=== PATIENT | female | born 1945 | race Caucasian/White ===

== ENCOUNTER 2017-04-28 17:27 | Emergency (ER) | payer OTHER ==
[~2017-04-28] VITALS: Ht 152.4 cm; Wt 68.0 kg
[~2017-04-28 17:27] MED LIST: AMITRIPTYLINE25 M1 PO; AMOX/CLAV POT1 TAB PO; APAP/HYDROCODON1 T13 PO; BENAZEPRIL10 MG PO; CIPRO250 MG PO; COLACE100 MG PO; DIA5 PO; ELA25 PO; ELAVIL25 MG PO; FERROUS SULFAT325 M2 PO; GABAPENTIN100 M2 PO; GLIPIZIDE5 MG PO; GLUCOTROL5 MG PO; LAC PO; LOTENSIN10 MG PO; MACROBID100 MG PO; METFORMIN HCL500 MG PO; METFORMIN500 MG PO; NAPROSYN PO; NOR10T PO; PRILOSEC OTC20 M1 PO; PRILOSEC20 MG PO; RANITIDINE150 MG PO; RES15 PO; RESTORIL15 MG PO; SIMVASTATIN40 M1 PO; TEMAZEPAM30 MG PO; ZOCOR PO; ZOCOR40 MG PO; ZOLPIDEM5 M1 PO
[2017-04-28 18:53] VITALS: BP 124/61; Ht 152.4 cm; Wt 68.0 kg
== END 2017-04-28 19:47 | disposition left against medical advice (07) ==
LOC: ED 17:27
DX: Z53.21 Procedure and treatment not carried out due to patient leaving prior to being seen by health care provider (principal)

== ENCOUNTER 2017-06-21 17:52 | Inpatient (IN) | payer OTHER ==
[~2017-06-21] VITALS: Ht 152.4 cm; Wt 64.4 kg
[~2017-06-21 17:52] MED LIST changes: -GLIPIZIDE5 MG PO; +LOTENSIN40 MG PO
[2017-06-21 19:31] LABS: BASOPHIL % 0.6 % (0-2); PLATELET COUNT 240 x10^3mcL (130-400)
[2017-06-21 19:33] LABS: RED CELL DISTRIBUTION WIDTH 15.3 % (11.5-14.5)
[2017-06-21 19:44] LABS: CALCIUM 9.2 mg/dL (8.5-10.1); CARBON DIOXIDE 27.7 mmol/L (21-32); CHLORIDE SERUM 101 mmol/L (98-107); CREATININE SERUM 0.9 mg/dL (0.6-1.0); GLUCOSE SERUM 138 mg/dL (74-106); POTASSIUM SERUM 3.9 mmol/L (3.5-5.1); SODIUM SERUM 141 mmol/L (136-145)
[2017-06-21] MEDS ORDERED: BACLOFEN10 MG PO (19:52)
[2017-06-21] MEDS ORDERED: NEURONTIN100 MG PO (19:52)
[2017-06-21] MEDS ORDERED: ARTIFICIAL TEA1 EACH (19:53)
[2017-06-21 19:56] LABS: ALBUMIN 3.8 g/dL (3.4-5.0); ALKALINE PHOSPHATASE 51 U/L (46-116); ALT/SGPT 27 U/L (14-59); AMYLASE 40 U/L (25-115); AST/SGOT 27 U/L (15-37); BILIRUBIN TOTAL 0.3 mg/dL (0.20-1.00); HDL CHOLESTEROL 41 mg/dL (40-60); LIPASE 140 IU/L (73-393); T4(THYROXINE) 8.1 ug/dL (4.7-13.3); TOTAL PROTEIN, SERUM 7.8 g/dL (6.4-8.2)
[2017-06-21 19:57] LABS: CHOLESTEROL 111 mg/dL (<200)
[2017-06-21 20:23] LABS: UA SPECIFIC GRAVITY <=1.005 (1.005-1.035); microscopic required? YES; urine erythrocyte NEGATIVE (NEGATIVE)
[2017-06-21 20:38] LABS: AMPHETAMINE QUAL UR NONE DETECTED (NEG <=1000)
[2017-06-21 20:57] LABS: CHOLESTEROL/HDL RATIO 2.7; MAGNESIUM 1.6 mg/dL (1.8-2.4); PHOSPHOROUS 3.5 mg/dL (2.5-4.9)
[2017-06-21 21:01] LABS: T3 TOTAL 1.04 ng/mL
[2017-06-21 21:14] LABS: FREE T4 1.24 ng/dL (0.76-1.46); FREE THYROXINE INDEX 3.6 ug/dL (1.4-4.5); T4(THYROXINE) 9.6 ug/dL (4.7-13.3)
[2017-06-21 21:35] VITALS: BP 141/68
[2017-06-21 21:37] VITALS: Ht 152.4 cm; Wt 64.4 kg
[2017-06-21 22:01] VITALS: BP 141/68
[2017-06-22 07:15] LABS: BASOPHIL % 0.6 % (0-2); PLATELET COUNT 215 x10^3mcL (130-400)
[2017-06-22 07:20] LABS: RED CELL DISTRIBUTION WIDTH 15.3 % (11.5-14.5)
[2017-06-22 07:28] LABS: CALCIUM 8.6 mg/dL (8.5-10.1); CARBON DIOXIDE 25.9 mmol/L (21-32); CHLORIDE SERUM 108 mmol/L (98-107); CREATININE SERUM 0.8 mg/dL (0.6-1.0); GLUCOSE SERUM 114 mg/dL (74-106); SODIUM SERUM 144 mmol/L (136-145)
[2017-06-22 09:47] VITALS: BP 125/60
[2017-06-22 13:42] VITALS: BP 117/62
[2017-06-22 16:54] VITALS: BP 121/61
[2017-06-22 20:18] VITALS: BP 113/51
[2017-06-23 05:48] VITALS: BP 112/51
[2017-06-23 07:59] LABS: BASOPHIL % 0.5 % (0-2); PLATELET COUNT 197 x10^3mcL (130-400)
[2017-06-23 08:21] LABS: RED CELL DISTRIBUTION WIDTH 15.7 % (11.5-14.5)
[2017-06-23 08:38] LABS: CALCIUM 8.5 mg/dL (8.5-10.1); CARBON DIOXIDE 22.7 mmol/L (21-32); CHLORIDE SERUM 110 mmol/L (98-107); CREATININE SERUM 0.7 mg/dL (0.6-1.0); GLUCOSE SERUM 109 mg/dL (74-106); MAGNESIUM 2.1 mg/dL (1.8-2.4); PHOSPHOROUS 3.2 mg/dL (2.5-4.9); POTASSIUM SERUM 4.3 mmol/L (3.5-5.1); SODIUM SERUM 143 mmol/L (136-145)
[2017-06-23 10:32] VITALS: BP 118/56
[2017-06-23 12:38] LABS: RED BLOOD CELLS 3.73 M/mm3 (4.10-5.10)
[2017-06-23 13:18] VITALS: BP 106/44
[2017-06-23 13:47] VITALS: BP 116/50
[2017-06-23 16:51] LABS: IRON 49 ug/dL (50-170); TOTAL IRON BINDING CAPACITY 314 ug/dL (250-450)
[2017-06-23 17:43] VITALS: BP 135/60
[2017-06-23 21:37] VITALS: BP 118/47
[2017-06-24 06:35] VITALS: BP 133/62
[2017-06-24 07:15] LABS: BASOPHIL % 0.6 % (0-2); PLATELET COUNT 183 x10^3mcL (130-400)
[2017-06-24 07:24] LABS: RED CELL DISTRIBUTION WIDTH 15.2 % (11.5-14.5)
[2017-06-24 07:41] LABS: CALCIUM 8.3 mg/dL (8.5-10.1); CARBON DIOXIDE 23.1 mmol/L (21-32); CHLORIDE SERUM 109 mmol/L (98-107); CREATININE SERUM 0.7 mg/dL (0.6-1.0); GLUCOSE SERUM 106 mg/dL (74-106); MAGNESIUM 1.6 mg/dL (1.8-2.4); PHOSPHOROUS 3.3 mg/dL (2.5-4.9); POTASSIUM SERUM 3.9 mmol/L (3.5-5.1); SODIUM SERUM 142 mmol/L (136-145)
[2017-06-24 08:13] VITALS: BP 134/62
[2017-06-24 13:07] VITALS: BP 131/86
[2017-06-24] MEDS ORDERED: PRILOSEC OTC20 M1 PO (14:28)
[2017-06-24] MEDS ORDERED: FLO4 PO (14:29)
[2017-06-24] MEDS ORDERED: MAC100 PO (14:31)
[2017-06-24] MEDS ORDERED: IMODIUM A-D2 M3 PO (14:31)
[2017-06-24] MEDS ORDERED: LAC PO (14:31)
[2017-06-24 14:49] VITALS: BP 131/86
== END 2017-06-24 16:00 | disposition home or self-care (01) | DRG 690 ==
LOC: ED 17:52 → DU 19:33
PROVIDERS: Emergency Medicine; Family Medicine; Internal Medicine
PROC: 0DBL8ZX Excision of Transverse Colon, Via Natural or Artificial Opening Endoscopic, Diagnostic (ICD-10-PCS; 2017-06-23)
PROC: 0DB68ZX Excision of Stomach, Via Natural or Artificial Opening Endoscopic, Diagnostic (ICD-10-PCS; principal; 2017-06-23 12:30)
PROC: 0DBP8ZX Excision of Rectum, Via Natural or Artificial Opening Endoscopic, Diagnostic (ICD-10-PCS; 2017-06-23 12:30)
DX: N39.0 Urinary tract infection, site not specified (principal); K58.0 Irritable bowel syndrome with diarrhea; I95.1 Orthostatic hypotension; G90.8 Other disorders of autonomic nervous system; K29.70 Gastritis, unspecified, without bleeding; I10 Essential (primary) hypertension; E78.00 Pure hypercholesterolemia, unspecified; Z85.038 Personal history of other malignant neoplasm of large intestine; Z92.21 Personal history of antineoplastic chemotherapy; E78.5 Hyperlipidemia, unspecified; Z87.11 Personal history of peptic ulcer disease; Z90.49 Acquired absence of other specified parts of digestive tract; Z98.891 History of uterine scar from previous surgery; Z83.3 Family history of diabetes mellitus; Z88.6 Allergy status to analgesic agent; Z80.9 Family history of malignant neoplasm, unspecified; Z60.2 Problems related to living alone; N20.0 Calculus of kidney; N28.1 Cyst of kidney, acquired; E11.65 Type 2 diabetes mellitus with hyperglycemia; K21.9 Gastro-esophageal reflux disease without esophagitis; E83.42 Hypomagnesemia; E87.8 Other disorders of electrolyte and fluid balance, not elsewhere classified; E11.9 Type 2 diabetes mellitus without complications; E27.8 Other specified disorders of adrenal gland; K80.20 Calculus of gallbladder without cholecystitis without obstruction; I35.0 Nonrheumatic aortic (valve) stenosis; I07.1 Rheumatic tricuspid insufficiency; D32.0 Benign neoplasm of cerebral meninges
CPT/HCPCS: 43235; 45378; 82962; 83880; 84439; 87046; 87046-59; J0696; J1200; J1610; J2250; J2310; J3010; J3475; J3490; J7030; Q0092

== ENCOUNTER 2018-01-21 12:56 | Emergency (ER) | payer OTHER ==
[~2018-01-21] VITALS: Ht 152.4 cm; Wt 66.7 kg
[~2018-01-21 12:56] MED LIST changes: +ARTIFICIAL TEA1 EACH; +BACLOFEN10 MG PO; +FLO4 PO; +IMODIUM A-D2 M3 PO; +MAC100 PO; +NEURONTIN100 MG PO
[2018-01-21 13:01] VITALS: Ht 152.4 cm; Wt 66.7 kg
[2018-01-21 14:14] LABS: BASOPHIL % 0.4 % (0-2); PLATELET COUNT 289 x10^3mcL (130-400)
[2018-01-21 14:19] LABS: CALCIUM 9.4 mg/dL (8.5-10.1); CARBON DIOXIDE 25.7 mmol/L (21-32); CHLORIDE SERUM 107 mmol/L (98-107); CREATININE SERUM 0.8 mg/dL (0.6-1.0); GLUCOSE SERUM 64 mg/dL (74-106); POTASSIUM SERUM 3.9 mmol/L (3.5-5.1); RED CELL DISTRIBUTION WIDTH 15.4 % (11.5-14.5); SODIUM SERUM 145 mmol/L (136-145)
[2018-01-21 14:23] LABS: ALBUMIN 3.8 g/dL (3.4-5.0); ALKALINE PHOSPHATASE 57 U/L (46-116); ALT/SGPT 24 U/L (14-59); AST/SGOT 17 U/L (15-37); BILIRUBIN TOTAL 0.29 mg/dL (0.20-1.00); TOTAL PROTEIN, SERUM 7.9 g/dL (6.4-8.2)
[2018-01-21 15:35] VITALS: BP 110/56
== END 2018-01-21 15:35 | disposition home or self-care (01) ==
LOC: ED 12:56
PROVIDERS: Emergency Medicine
DX: R07.89 Other chest pain (principal); I10 Essential (primary) hypertension; E11.9 Type 2 diabetes mellitus without complications; E78.00 Pure hypercholesterolemia, unspecified; M81.0 Age-related osteoporosis without current pathological fracture; E78.5 Hyperlipidemia, unspecified; Z86.2 Personal history of diseases of the blood and blood-forming organs and certain disorders involving the immune mechanism; Z88.6 Allergy status to analgesic agent; Z85.038 Personal history of other malignant neoplasm of large intestine
CPT/HCPCS: 36415; 85378; Q0092

== ENCOUNTER 2020-04-09 12:43 | Inpatient (IN) | payer OTHER ==
[~2020-04-09] VITALS: Ht 152.4 cm; Wt 77.1 kg
[2020-04-09 14:55] VITALS: Ht 152.4 cm; Wt 77.1 kg
[2020-04-09 15:39] LABS: BASOPHIL % 0.3 % (0.2-1.3); PLATELET COUNT 181 x10^3mcL (179-408)
[2020-04-09 15:42] LABS: RED CELL DISTRIBUTION WIDTH 15.7 % (12.3-17.7)
[2020-04-09 15:59] LABS: UA SPECIFIC GRAVITY 1.015 (1.005-1.035); microscopic required? YES; urine erythrocyte NEGATIVE (NEGATIVE)
[2020-04-09 16:31] LABS: CALCIUM 8.3 mg/dL (8.5-10.1); CARBON DIOXIDE 19.2 mmol/L (21-32); CHLORIDE SERUM 97 mmol/L (98-107); GLUCOSE SERUM 230 mg/dL (74-106); POTASSIUM SERUM 4.6 mmol/L (3.5-5.1); SODIUM SERUM 131 mmol/L (136-145)
[2020-04-09 16:35] LABS: ALKALINE PHOSPHATASE 49 U/L (46-116); ALT/SGPT 86 U/L (14-59); AST/SGOT 171 U/L (15-37); BILIRUBIN TOTAL 0.3 mg/dL (0.20-1.00); C REACTIVE PROTEIN 6.5 mg/dL (<=0.9); LACTIC DEHYDROGENASE (LDH) 362 U/L (100-190)
[2020-04-09 16:40] LABS: ALBUMIN 2.9 g/dL (3.4-5.0)
[2020-04-09] MEDS ORDERED: LOT10 PO (18:54)
[2020-04-09] MEDS ORDERED: METOPROLOL SUCC25 M2 PO (18:55)
[2020-04-09 23:50] VITALS: BP 115/59
[2020-04-10 08:03] LABS: BASOPHIL % 0.4 % (0.2-1.3); PLATELET COUNT 174 x10^3mcL (179-408)
[2020-04-10 08:11] LABS: ALKALINE PHOSPHATASE 48 U/L (46-116); ALT/SGPT 98 U/L (14-59); AST/SGOT 137 U/L (15-37); BILIRUBIN TOTAL 0.3 mg/dL (0.20-1.00); CALCIUM 7.8 mg/dL (8.5-10.1); CARBON DIOXIDE 24.3 mmol/L (21-32); CHLORIDE SERUM 101 mmol/L (98-107); CREATININE SERUM 0.8 mg/dL (0.6-1.0); GLUCOSE SERUM 129 mg/dL (74-106); MAGNESIUM 1.5 mg/dL (1.8-2.4); PHOSPHOROUS 2.9 mg/dL (2.5-4.9); POTASSIUM SERUM 4.7 mmol/L (3.5-5.1); SODIUM SERUM 134 mmol/L (136-145); TOTAL PROTEIN, SERUM 6.4 g/dL (6.4-8.2); TRIGLYCERIDES 97 mg/dL (<150)
[2020-04-10 08:12] LABS: ALBUMIN 2.6 g/dL (3.4-5.0); CHOLESTEROL 72 mg/dL (<200); CHOLESTEROL/HDL RATIO 2.9; HDL CHOLESTEROL 25 mg/dL (40-60)
[2020-04-10 08:47] LABS: RED CELL DISTRIBUTION WIDTH 15.6 % (12.3-17.7)
[2020-04-11 00:22] VITALS: BP 121/57
[2020-04-11 06:20] VITALS: BP 121/51
[2020-04-11 08:05] LABS: BASOPHIL % 0.3 % (0.2-1.3); PLATELET COUNT 208 x10^3mcL (179-408)
[2020-04-11 08:26] LABS: ALKALINE PHOSPHATASE 51 U/L (46-116); ALT/SGPT 53 U/L (14-59); AST/SGOT 66 U/L (15-37); BILIRUBIN TOTAL 0.3 mg/dL (0.20-1.00); CALCIUM 8.3 mg/dL (8.5-10.1); CARBON DIOXIDE 24.1 mmol/L (21-32); CHLORIDE SERUM 103 mmol/L (98-107); CREATININE SERUM 0.7 mg/dL (0.6-1.0); GLUCOSE SERUM 99 mg/dL (74-106); PHOSPHOROUS 3.2 mg/dL (2.5-4.9); POTASSIUM SERUM 4.5 mmol/L (3.5-5.1); SODIUM SERUM 139 mmol/L (136-145); TOTAL PROTEIN, SERUM 6.5 g/dL (6.4-8.2)
[2020-04-11 08:28] LABS: ALBUMIN 2.6 g/dL (3.4-5.0)
[2020-04-11 08:45] LABS: RED CELL DISTRIBUTION WIDTH 15.6 % (12.3-17.7)
[2020-04-11 12:26] VITALS: BP 116/48
[2020-04-11 16:53] VITALS: BP 105/61
[2020-04-11 20:40] VITALS: BP 122/66
[2020-04-12 05:35] VITALS: BP 121/57
[2020-04-12 08:02] LABS: BASOPHIL % 0.3 % (0.2-1.3); PLATELET COUNT 259 x10^3mcL (179-408)
[2020-04-12 08:32] LABS: ALKALINE PHOSPHATASE 56 U/L (46-116); ALT/SGPT 46 U/L (14-59); AST/SGOT 45 U/L (15-37); BILIRUBIN TOTAL 0.3 mg/dL (0.20-1.00); CALCIUM 8.3 mg/dL (8.5-10.1); CARBON DIOXIDE 22.6 mmol/L (21-32); CHLORIDE SERUM 102 mmol/L (98-107); CREATININE SERUM 0.7 mg/dL (0.6-1.0); GLUCOSE SERUM 193 mg/dL (74-106); MAGNESIUM 1.9 mg/dL (1.8-2.4); PHOSPHOROUS 2.9 mg/dL (2.5-4.9); POTASSIUM SERUM 4.7 mmol/L (3.5-5.1); SODIUM SERUM 138 mmol/L (136-145); TOTAL PROTEIN, SERUM 6.8 g/dL (6.4-8.2)
[2020-04-12 08:35] LABS: ALBUMIN 2.7 g/dL (3.4-5.0)
[2020-04-12 09:08] VITALS: BP 114/66
[2020-04-12 11:21] LABS: RED CELL DISTRIBUTION WIDTH 15.5 % (12.3-17.7)
[2020-04-12 13:10] VITALS: BP 136/67
[2020-04-12 17:24] VITALS: BP 133/65
[2020-04-12 20:57] VITALS: BP 134/60
[2020-04-13 05:41] VITALS: BP 126/62
[2020-04-13 08:38] LABS: BASOPHIL % 0.1 % (0.2-1.3); PLATELET COUNT 313 x10^3mcL (179-408)
[2020-04-13 08:55] LABS: RED CELL DISTRIBUTION WIDTH 15.4 % (12.3-17.7)
[2020-04-13 09:03] VITALS: BP 103/58
[2020-04-13 11:08] LABS: ALBUMIN 2.6 g/dL (3.4-5.0); ALKALINE PHOSPHATASE 50 U/L (46-116); ALT/SGPT 40 U/L (14-59); AST/SGOT 32 U/L (15-37); BILIRUBIN TOTAL 0.34 mg/dL (0.20-1.00); CALCIUM 8.6 mg/dL (8.5-10.1); CHLORIDE SERUM 103 mmol/L (98-107); CREATININE SERUM 0.8 mg/dL (0.6-1.0); GLUCOSE SERUM 192 mg/dL (74-106); MAGNESIUM 1.9 mg/dL (1.8-2.4); POTASSIUM SERUM 4.3 mmol/L (3.5-5.1); SODIUM SERUM 139 mmol/L (136-145); TOTAL PROTEIN, SERUM 6.6 g/dL (6.4-8.2)
[2020-04-13 11:12] LABS: BILIRUBIN DIRECT 0.18 mg/dL (0.0-0.2); BILIRUBIN TOTAL 0.32 mg/dL (0.20-1.00); TOTAL PROTEIN, SERUM 6.3 g/dL (6.4-8.2)
[2020-04-13 11:13] LABS: ALBUMIN 2.8 g/dL (3.4-5.0)
[2020-04-13 13:19] VITALS: BP 127/66
[2020-04-13 17:14] VITALS: BP 148/73
[2020-04-13 21:16] VITALS: BP 107/56
[2020-04-14 05:25] VITALS: BP 157/61
[2020-04-14 08:26] LABS: PLATELET COUNT 314 x10^3mcL (179-408)
[2020-04-14 08:39] VITALS: BP 130/57
[2020-04-14 08:58] LABS: ALKALINE PHOSPHATASE 52 U/L (46-116); ALT/SGPT 32 U/L (14-59); AST/SGOT 31 U/L (15-37); BILIRUBIN TOTAL 0.4 mg/dL (0.20-1.00); CALCIUM 8.2 mg/dL (8.5-10.1); CARBON DIOXIDE 24.6 mmol/L (21-32); CHLORIDE SERUM 102 mmol/L (98-107); CREATININE SERUM 0.7 mg/dL (0.6-1.0); GLUCOSE SERUM 245 mg/dL (74-106); PHOSPHOROUS 3.6 mg/dL (2.5-4.9); POTASSIUM SERUM 4.2 mmol/L (3.5-5.1); SODIUM SERUM 137 mmol/L (136-145); TOTAL PROTEIN, SERUM 6.3 g/dL (6.4-8.2)
[2020-04-14 09:00] LABS: ALBUMIN 2.7 g/dL (3.4-5.0)
[2020-04-14 09:36] LABS: RED CELL DISTRIBUTION WIDTH 15.6 % (12.3-17.7)
[2020-04-14] MEDS ORDERED: DECADRON6 MG PO (09:41)
[2020-04-14 12:06] VITALS: BP 138/48
[2020-04-14 12:14] LABS: BAND NEUTROPHIL 2 % (0-10); MONOCYTE 26 % (0-7); SEGMENTED NEUTROPHILS 52 % (37-75); rbc morphology (normal/abnorm) NORMAL (NORMAL)
[2020-04-14 16:17] VITALS: BP 126/67
== END 2020-04-14 17:31 | disposition home or self-care (01) | DRG 177 ==
LOC: ED 12:43 → MU 17:17 → DU 17:17
PROVIDERS: Emergency Medicine; Internal Medicine Infectious Disease; ADMIT Hospitalist; ATTEND Hospitalist
PROC: XW033E5 Introduction of Remdesivir Anti-infective into Peripheral Vein, Percutaneous Approach, New Technology Group 5 (ICD-10-PCS; principal; 2020-04-10)
PROC: XW13325 Transfusion of Convalescent Plasma (Nonautologous) into Peripheral Vein, Percutaneous Approach, New Technology Group 5 (ICD-10-PCS; 2020-04-13)
DX: U07.1 COVID-19 (principal); J96.01 Acute respiratory failure with hypoxia; J12.89 Other viral pneumonia; E11.9 Type 2 diabetes mellitus without complications; E78.00 Pure hypercholesterolemia, unspecified; I11.0 Hypertensive heart disease with heart failure; I50.9 Heart failure, unspecified; E78.5 Hyperlipidemia, unspecified; M81.0 Age-related osteoporosis without current pathological fracture; Z87.11 Personal history of peptic ulcer disease; Z88.6 Allergy status to analgesic agent; Z79.899 Other long term (current) drug therapy; Z90.49 Acquired absence of other specified parts of digestive tract; Z79.84 Long term (current) use of oral hypoglycemic drugs; Z83.3 Family history of diabetes mellitus; Z80.9 Family history of malignant neoplasm, unspecified
CPT/HCPCS: 36600; 83880; 85378; 87804; G0378; J1644; J1650; J3475; J3535; J7050; U0003